=== PATIENT | female | born 1990 | race Two or more races ===

== ENCOUNTER 2019-09-13 00:47 | Emergency (ER) | payer SELFPAY ==
[~2019-09-13] VITALS: Ht 154.9 cm; Wt 74.7 kg
--- NOTE | 2019-09-13 00:53 | NUR ---
LMP July, STATES 4 WEEKS . . VAGINAL SPOTTING, WENT FROM DARK BLOOD TO LIGHT PINK.
--- NOTE | 2019-09-13 01:40 | NUR ---
Patient into room, complains of abdominal pain. Visual bulging of abdomen from known hernia. Patient is alert, oriented and cooperative. Patient attached to blood pressure cuff and pulsatile oxygen sensor. Vital signs within normal limits (see vital signs flowsheet) Patient shows no signs of respirator distress and report having regular bowel movements. Awaiting assessment from provider.
[2019-09-13] MEDS ORDERED: MORPHINE SULFATE 4 MG/ML, 1ML IVPush PRN (02:00)
[2019-09-13] MEDS ORDERED: ONDANSETRON 2MG/ML, 2ML IVPush ONE (02:00)
[2019-09-13 02:17] LABS: BASOPHILS # (AUTO) 0.02 x10^3/uL (0-0.1); BASOPHILS % (AUTO) 0 % (0-1); EOSINOPHILS # (AUTO) 0.02 x10^3/uL (0-0.4); EOSINOPHILS % (AUTO) 0 % (1-7); LYMPHOCYTES # (AUTO) 2.31 x10^3/uL (1-3.4); LYMPHOCYTES % (AUTO) 20 % (22-44); MD NO; MEAN CORPUSCULAR HEMOGLOBIN 29.2 pg (27.0-34.8); MEAN CORPUSCULAR HGB CONC 33.3 g/dL (32.4-35.8); MEAN CORPUSCULAR VOLUME 87.6 fL (80-100); MEAN PLATELET VOLUME 7.5 fL (7.4-10.4); MONOCYTES # (AUTO) 0.34 x10^3/uL (0.2-0.8); MONOCYTES % (AUTO) 3 % (2-9); NEUTROPHILS # (AUTO) 8.97 x10^3/uL (1.8-6.8); NEUTROPHILS % (AUTO) 77 % (42-75); PLATELET COUNT 286 x10^3/uL (130-400); RED BLOOD COUNT 4.11 x10^6/uL (3.82-5.3); RED CELL DISTRIBUTION WIDTH 14.1 % (9.6-15.2)
[2019-09-13] MEDS ORDERED: ONDANSETRON 2MG/ML, 2ML ONE (02:23)
[2019-09-13] MEDS ORDERED: MORPHINE SULFATE 4 MG/ML, 1ML ONE (02:24)
[2019-09-13 02:28] LABS: ALANINE AMINOTRANSFERASE 20 U/L (12-78); ALBUMIN 3.5 g/dL (3.4-5.0); ANION GAP 7 mmol/L (5-15); CALCIUM 8.7 mg/dL (8.5-10.1); CHLORIDE 105 mmol/L (98-107)
[2019-09-13 02:47] LABS: ALKALINE PHOSPHATASE 39 U/L (45-117); BILIRUBIN,TOTAL 0.7 mg/dL (0.2-1.0); CREATININE 0.58 mg/dL (0.55-1.02); TOTAL PROTEIN 7.6 g/dL (6.4-8.2)
[2019-09-13 03:01] LABS: CULTURE INDICATED? YES; MICROSCOPIC INDICATED
[2019-09-13 04:37] VITALS: BP 123/72
== END 2019-09-13 05:14 | disposition home or self-care (01) ==
LOC: ED 05:08
DX: O23.11 Infections of bladder in pregnancy, first trimester (principal); K43.6 Other and unspecified ventral hernia with obstruction, without gangrene; R31.9 Hematuria, unspecified; Z3A.01 Less than 8 weeks gestation of pregnancy; Z90.49 Acquired absence of other specified parts of digestive tract
CPT/HCPCS: 36415; 76801; 80053; 81001; 83690; 84702; 85025; 86901; 87077; 87086; 87186; 96374; 96375; 99284; J2270; J2405